=== PATIENT | male | born 1945 | race Caucasian/White ===

== ENCOUNTER → 2017-02-10 | Outpatient (CLI) | payer MEDICARE ==
[~2017-02-10] VITALS: Ht 167.6 cm; Wt 71.0 kg
[~2017-02-10] MED LIST: ALLO100T PO; ASCO500C PO; ASCO500T PO; ASPI-516 CHEW; ATOR20TA15 PO; BUME2TAB PO; BUSP1TAB PO; CALCTAB19 PO; CHLORHEXIDINE GLUCONATE 2 % 1 PACK (2 CLOTHS) TOPICAL PRN; CHOL4POW4 PO; DEXTROSE 5% IN WATE 1000ML INJ 1,000 ML IV SCH; FERR325T20 PO; FLUC100T2 PO; FOSA70TA PO; HUMALOG SQ; IPRASOL INH; LACTATED RINGER'S 1000 ML IV PRN; LEVEMIR SQ; LEVO-168 PO; LORA-392 PO; METO25TA3 PO; METOPROLOL TARTRATE 25 MG TAB PO PRN; MIDO10TA PO; NEPHRO PO; NEUR300C PO; OMEGA 3 PO; OMEP20TA93 PO; POVIDONE IODINE 5% (ANTISEPSIS KIT) 4 APPLICATIONS EACH NARE PRN; PRED5TAB PO; SERT-129 PO; SIME180C2 PO; SODIUM CHLORID 0.9% 500 ML IV PRN; TACR0.5C PO; TEMA7.5C9 PO; WHEEMIS3
[2017-02-10 14:10] VITALS: BP 103/48; PULSE 73; RESP 18; TEMP 97; O2SAT 100
--- NOTE | 2017-02-11 10:23 | MR ---
cc: VLADIMIR SAUCEDA M.D. DATE 02/10/2017 PREOPERATIVE DIAGNOSIS History of polyps, colon cancer screening. PROCEDURE Colonoscopy to the cecum. POSTOPERATIVE DIAGNOSIS 1. Normal cecum and ileocecal valve. 2. Diverticulosis rectosigmoid and left colon. 3. History of polyps. SURGEON Dr. Sauceda. DETAILS OF PROCEDURE The patient was placed in the left lateral decubitus position. After adequate anesthesia sedation a rectal exam confirmed the emptiness of rectal vault. An Olympus colonoscope was introduced into the rectum and advanced easily under direct vision through the proximal colon until the cecum was identified. The ileocecal valve was normal. The appendiceal orifice was quite wide-mouthed but normal. No vascular abnormalities were noted in the cecum. The colonoscope was then gradually withdrawn visualizing the mucosal surface throughout the distal colon. No inflammatory changes were seen. No luminal narrowing. There was significant diverticulosis in the rectosigmoid but no obstruction or luminal inflammation. No polyps were seen. Distal rectosigmoid was pretty unremarkable. The patient tolerated the procedure quite well and was brought to the recovery room in stable condition. MD ELVI Ambrosio/GÓMEZ /10:36 PM /10:14 AM
== END ==
LOC: HEND 10:35
PROVIDERS: ATTEND Colon & Rectal Surgery
DX: Z12.11 Encounter for screening for malignant neoplasm of colon (principal); Z86.010 Personal history of colon polyps; K57.30 Diverticulosis of large intestine without perforation or abscess without bleeding
CPT/HCPCS: 00810; 45378; J7070

== ENCOUNTER → 2017-05-08 | Day surgery (SDC) | payer MEDICARE ==
[~2017-05-08] VITALS: Ht 162.6 cm; Wt 64.7 kg
[~2017-05-08] MED LIST changes: +ACETAMINOPHEN/HYDROcodone 325 MG/5 MG TAB PO PRN; -ASCO500T PO; -BUME2TAB PO; +BUPIVACAINE/EPINEPHRINE 0.25% 50 ML VIAL ONE; +CEPH-460 PO; +CHLORHEXIDINE GLUCONATE 4% SOLN 120 ML BTL TOPICAL SCH; -CHOL4POW4 PO; +DEXAMETHASONE SOD PHOS 4 MG/ML VIAL IV ONE; -DEXTROSE 5% IN WATE 1000ML INJ 1,000 ML IV SCH; +DO NOT ADM ANY ANTICOAGULANT DRUGS PRN; -FERR325T20 PO; -FLUC100T2 PO; -FOSA70TA PO; +GLYCOPYRROLATE 1 MG/5 ML SYRINGE IV PUSH ONE; -HUMALOG SQ; +HYDR-3516 PO; +INSU1.2I SQ; -LEVEMIR SQ; +LIDOCAINE HCL 1% 50 ML VIAL ONE; +LIDOCAINE HCL 1% PF 5 ML SYRINGE OTHER ONE; -METO25TA3 PO; +MORPHINE SULFATE 2 MG/ML INJ IV PUSH PRN; +NEOSTIGMINE 5 MG/5 ML SYRINGE IV PUSH ONE; -NEPHRO PO; +NOVORP2 SQ; -OMEGA 3 PO; +ONDANSETRON HCL 4 MG/2 ML VIAL IV ONE; +ONDANSETRON HCL 4 MG/2 ML VIAL IV PUSH PRN; +OXYC1TAB63 PO; +PHENYLEPH/NS 1000 MCG/10 ML SYR IV ONE; +PROPOFOL 200 MG/20 ML AMP IV ONE; +ROCURONIUM INJ 50 MG/5 ML SYRINGE IV PUSH ONE; -SIME180C2 PO; +SODIUM CHLOR 0.9% 250 ML INJ 250 ML IV ONE; +SODIUM CHLORIDE 0.9% FLUSH 10 ML FLUSH IV FLUSH PRN; +SUGAMMADEX SODIUM 200 MG/2 ML VIAL IV PUSH ONE; -TEMA7.5C9 PO; +ZOFR4TAB PO; +[UNRECOGNIZED DRUG - CODE] PO; +ceFAZolin 2 GM PREMIX 50 ML IV SCH; +ceFAZolin INJ 1,000 MG VIAL IV ONE
--- NOTE | 2017-05-08 09:14 | PD.OP ---
cc: Hanh Lundy MD Operative Report Date of Surgery: May 08, 2017 Preoperative Diagnosis: Acute T10 compression fracture Postoperative Diagnosis: same Procedure: T10 kyphoplasty with bone biopsy Anesthesia: gen Surgeon: Hanh Lundy Rn Procedure(s): none Operation and Findings: EBL: 10cc Complications: none Specimens: bone biopsy T10 Indications for procedure: Patient is a 71yo male who has failed greater than 4 weeks of non-op treatment for acute T10 compression fracture with persistent debilitating back pain. Option of kyphoplasty with bone biopsy was discussed with the patient and his . Risks including but not limited to: infection, extravasation of cement, neurologic injury causing weakness and/or paralysis, medical complications, adjacent compression fracture, persistent symptoms, and other unforeseen complications were all discussed. At this time, he has consented to the procedure. Description of Operative Procedure: The patient was brought to the operating room and general anesthesia then ensued. The patient was carefully rolled to a prone position on a radiolucent table. All pressure points were well-padded and the back was scrubbed with alcohol followed by Hibiclens followed by ChloraPrep and draped sterilely. Antibiotics were given within 1 hour time and a timeout was done. AP and lateral fluoroscopic images were used to identify the proper level, T10. This was compared to preoperative studies. Skin markings were made. Local anesthesia was utilized with a combination of 1% lidocaine plain and 1/4% Marcaine with epinephrine. A double balloon approach was utilized from the left side, first. A small awl was placed through the subcutaneous tissue, through the pedicle and into the vertebral body at an oblique angle. A bone biopsy was then performed through this cannula. This was followed by placement of a balloon. The balloon was elevated. This procedure was then repeated from the right side. No bone biopsy was performed on this side. On the back table methyl methacrylate was mixed. After approximately 11 minutes , the cement was injected into that level. Once the cement had hardened, the tube were removed. The wound was irrigated, anesthetized and closed with 4-0 Vicryl followed by Dermabond. Intraoperative x-rays were obtained. The patient was awakened and taken to the recovery room in satisfactory condition. FINDINGS: Acute T10 compression fracture Hanh Lundy MD May 08, 2017 09:13
[2017-05-08 10:15] VITALS: BP 140/69; PULSE 80; RESP 20; TEMP 97.5; O2SAT 100
--- NOTE | 2017-05-08 11:03 | RADRPT ---
EXAM DATE/TIME: 05/08/2017 08:03 [facility] COMPARISON: WRIST RIGHT COMPLETE ([id number]), July 10, 2016, 14:10. INDICATIONS : Post-op T-10 kyphoplasty for compression fracture. MEDICAL HISTORY : Compression fracture. Renal cell carcinoma. SURGICAL HISTORY : Heart transplant. ENCOUNTER: Initial ACUITY: 1 day PAIN SCORE: Non-responsive. LOCATION: Thoracic spine. FINDINGS: Intraoperative examination demonstrates post kyphoplasty changes at the T10 level. The cement is well -contained within the vertebral body. There is compression fracture of vertebral body. CONCLUSION: 1. Post kyphoplasty changes at T10. Victorino Zamudio MD on May 08, 2017 at 10:50 Board Certified Radiologist. This report was verified electronically.
== END | disposition home or self-care (01) ==
LOC: HSDC 05:37
PROVIDERS: ATTEND Orthopaedic Surgery Orthopaedic Surgery of the Spine
DX: S22.070A Wedge compression fracture of T9-T10 vertebra, initial encounter for closed fracture (principal); E11.9 Type 2 diabetes mellitus without complications; I73.9 Peripheral vascular disease, unspecified; N28.9 Disorder of kidney and ureter, unspecified; I51.9 Heart disease, unspecified; M70.40 Prepatellar bursitis, unspecified knee; D09.0 Carcinoma in situ of bladder; M10.9 Gout, unspecified; K21.9 Gastro-esophageal reflux disease without esophagitis; E07.9 Disorder of thyroid, unspecified
CPT/HCPCS: 01936; 22513; 72070; 82948; 84132; 88307; 88311; J0690; J1100; J2370; J2405; J2710; J3010; J7040; J7050; 88305